=== PATIENT | male | born 1995 | race Caucasian/White ===

== ENCOUNTER 2018-12-27 08:35 | Emergency (ER) | payer MEDICAID ==
[~2018-12-27] VITALS: Ht 160 cm; Wt 50.0 kg
[2018-12-27] MEDS ORDERED: DEXAMETHASONE 10 MG/ML VIAL IM ONE (10:00)
[2018-12-27] MEDS ORDERED: ACETAMINOPHEN 325MG TABLET PO ONE (10:00)
[2018-12-27] MEDS ORDERED: PENICILLIN G BENZATHINE 1,200,000 UNITS/2ML SYR IM ONE (10:00)
[2018-12-27] MEDS ORDERED: VISCOUS LIDOCAINE 2% 15 ML UDC MM PRN (10:00)
[2018-12-27 12:00] VITALS: BP 107/51
== END 2018-12-27 12:09 | disposition home or self-care (01) ==
LOC: ER 08:35
DX: J03.90 Acute tonsillitis, unspecified (principal); F15.10 Other stimulant abuse, uncomplicated; F17.210 Nicotine dependence, cigarettes, uncomplicated; F12.10 Cannabis abuse, uncomplicated
CPT/HCPCS: 87070; 87430; 96372; 99283; J0561; J1100; Z7610